=== PATIENT | female | born 1965 | race African-American/Black ===

== ENCOUNTER 2016-10-28 17:49 | Emergency (ER) | payer SELFPAY ==
[~2016-10-28] VITALS: Ht 162.6 cm; Wt 106.0 kg
[~2016-10-28 17:49] MED LIST: AMLO5TAB2 PO; POTA-163 PO
[2016-10-28 17:51] VITALS: BP 124/77; PULSE 83; RESP 16; TEMP 98.6; O2SAT 99
--- NOTE | 2016-10-28 17:55 | PD ---
Physical Exam Date Seen by Provider: Oct 28, 2016 Time Seen by Provider: 17:52 Narrative 50 YOBF C/O L SHOULDER PAIN SINCE SATURDAY. NO CP,SOB,N/V. NO INJURY VSS. PT AWAITING BED PLACEMENT Data Data Last Documented VS Vital Signs Date Time Temp Pulse Resp B/P Pulse Ox O2 Delivery O2 Flow Rate FiO2 10/28/16 17:51 98.6 83 16 124/77 99 MDM Medical Record Reviewed: Yes Supervised Visit with YUE: Yes Leno Tatum Oct 28, 2016 17:55
--- NOTE | 2016-10-28 19:09 | PD ---
HPI Chief Complaint: Injury Time Seen by Provider: 19:00 Travel History International Travel<30 days: No Contact w/Intl Traveler<30days: No Traveled to known affect area: No History of Present Illness HPI 50-year-old female presents for evaluation of anterior left shoulder pain. Symptoms started 5 days ago. She describes it as a soreness that is worse when she was reaching over her head. 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 She denies any trauma to the left shoulder. She has not tried using any medication for symptom relief. The pain does not radiate into the chest, back, neck. No numbness or tingling or weakness. No associated signs and symptoms. No other complaints. History Past Medical Histgory Hx Cancer: No Hx Chemotherapy: No Hx Radiation Therapy: No Social History Alcohol Use: Yes Tobacco Use: No Allergies-Medications (Allergen,Severity, Reaction): Coded Allergies: No Known Allergies (Verified , 08/09/16) Reported Meds & Prescriptions Reported Meds & Active Scripts Active Amlodipine (Amlodipine Besylate) 5 Mg Tab 5 Mg PO DAILY Reported Potassium Chloride ER (Potassium Chloride) 20 Meq Tab 20 Meq PO BID Review of Systems Except as stated in HPI: all other systems reviewed are Neg Physical Exam Narrative GENERAL: Well-developed well-nourished female in no acute distress SKIN: Warm and dry. No bruising or soft tissue swelling HEAD: Atraumatic. Normocephalic. EYES: Pupils equal and round. No scleral icterus. No injection or drainage. ENT: No nasal bleeding or discharge. Mucous membranes pink and moist. NECK: Trachea midline. No JVD. CARDIOVASCULAR: Regular rate and rhythm. No murmur appreciated. RESPIRATORY: No accessory muscle use. Clear to auscultation. Breath sounds equal bilaterally. MUSCULOSKELETAL: No obvious deformities. Mild tenderness to palpation to the anterior left shoulder. There is no tenderness to palpation along the clavicle , acromioclavicular joint, scapula, cervical spine. The patient maintains full range of motion of the shoulders, negative empty can test. NEUROLOGICAL: Awake and alert. No obvious cranial nerve deficits. Motor grossly within normal limits. Normal speech. Data Data Last Documented VS Vital Signs Date Time Temp Pulse Resp B/P Pulse Ox O2 Delivery O2 Flow Rate FiO2 10/28/16 17:51 98.6 83 16 124/77 99 MDM Medical Screen Exam Complete: Yes Emergency Medical Condition: No Narrative Course 50-year-old female presents with left shoulder soreness for 5 days, reproduced when reaching overhead. No trauma. I suspect shoulder impingement or tendinitis. There is no emergent medical condition for this issue and she can follow-up as an outpatient. A medical screening exam was performed: At the time of evaluation the presenting medical condition was determined not to be of an emergent nature. The patient was given the option of receiving additional care, but declined. Patient was given options for additional community resources from which to obtain care. The Patient Has Been advised to seek medical attention for their presenting complaint. The patient has been advised to return to the ER at any time if an emergent condition develops. Primary Impression: Encounter for medical screening examination Nakul Taylor Oct 28, 2016 19:09
[2017-01-15] MEDS ORDERED: ROBA750T PO (08:58)
[2017-01-15] MEDS ORDERED: POTA-163 PO (08:58)
[2017-01-15] MEDS ORDERED: IBUP-232 PO (08:58)
== END 2016-10-28 19:22 | disposition left against medical advice (07) ==
LOC: NEPK 17:49
DX: M25.512 Pain in left shoulder (principal)
CPT/HCPCS: 99281

== ENCOUNTER 2016-12-15 03:49 | Emergency (ER) | payer OTHER ==
[2016-12-15 03:51] VITALS: BP 184/94; PULSE 63; RESP 14; TEMP 97.9; O2SAT 97
--- NOTE | 2016-12-15 04:12 | PD ---
HPI Chief Complaint: Pain: Acute or Chronic Time Seen by Provider: 04:10 Travel History International Travel<30 days: No Contact w/Intl Traveler<30days: No Traveled to known affect area: No History of Present Illness HPI 51-year-old female presents to the emergency department for evaluation of right low back pain for 1 week as well as bilateral thigh cramping for 2 weeks. Patient denies a traumatic injury. She does report history of hypokalemia and takes potassium daily. She states she has been taking these as prescribed. Patient denies any fevers. No loss of bowel or bladder control. No saddle anesthesias. She reports history of hypokalemia and hypertension. She sees Dr. Muniz in the community clinic. She denies any other medical complaints at this time. No chest pressure is breath. No abdominal pain. No nausea, vomiting, diarrhea. Patient has been ambulatory. PFSH Past Medical History Autoimmune Disease: No Blood Disorders: No Heart Rhythm Problems: No Cancer: No Cardiac Catheterization: No High Cholesterol: No Chemotherapy: No Diabetes: No Diminished Hearing: No Endocrine: No Gastrointestinal Disorders: No Glaucoma: No Genitourinary: No Hypertension: No Immune Disorder: No Musculoskeletal: Yes (Muscle Spasms) Neurologic: No Psychiatric: No Reproductive: No Respiratory: No Immunizations Current: No Myocardial Infarction: No Radiation Therapy: No ?: Not : 4 Para: 3 Miscarriage: 0 : 0 Ovarian Cysts: Yes Tubal Ligation: Yes Past Surgical History AICD: No Arteriovenous Shunt: No Coronary Artery Bypass Graft: No Gynecologic Surgery: Yes (Ovarian cysts removed) Hysterectomy: Yes Insulin Pump: No Joint Replacement: No Pacemaker: No Other Surgery: No Social History Alcohol Use: Yes Tobacco Use: No Substance Use: No Allergies-Medications (Allergen,Severity, Reaction): Coded Allergies: No Known Allergies (Verified , 12/15/16) Reported Meds & Prescriptions Reported Meds & Active Scripts Active Amlodipine (Amlodipine Besylate) 5 Mg Tab 5 Mg PO DAILY Reported Potassium Chloride ER (Potassium Chloride) 20 Meq Tab 20 Meq PO BID Review of Systems Except as stated in HPI: all other systems reviewed are Neg Physical Exam Narrative GENERAL: Well-nourished, well-developed female patient, ambulatory. Afebrile. SKIN: Focused skin assessment warm/dry. HEAD: Normocephalic. Atraumatic. EYES: No scleral icterus. No injection or drainage. NECK: Supple, trachea midline. No JVD or lymphadenopathy. CARDIOVASCULAR: Regular rate and rhythm without murmurs, gallops, or rubs. RESPIRATORY: Breath sounds equal bilaterally. No accessory muscle use. Lungs sounds are clear to auscultation. GASTROINTESTINAL: Abdomen soft, non-tender, nondistended. MUSCULOSKELETAL: No cyanosis, or edema. BACK: Nontender without obvious deformity. No CVA tenderness. No midline spinal tenderness. Patient's tenderness over right lumbar paraspinal musculature. Straight leg raise is negative bilaterally. Data Data Last Documented VS Vital Signs Date Time Temp Pulse Resp B/P Pulse Ox O2 Delivery O2 Flow Rate FiO2 12/15/16 03:51 97.9 63 14 184/94 97 Room Air Orders Basic Metabolic Panel (Bmp) (12/15/16 04:09) Ketorolac Inj (Toradol Inj) (12/15/16 04:15) Orphenadrine Inj (Norflex Inj) (12/15/16 09:00) Labs Laboratory Tests Test 12/15/16 04:25 Sodium Level 140 MEQ/L Potassium Level 3.9 MEQ/L Chloride Level 108 MEQ/L Carbon Dioxide Level 25.3 MEQ/L Anion Gap 7 MEQ/L Blood Urea Nitrogen 15 MG/DL Creatinine 0.76 MG/DL Estimat Glomerular Filtration 97 ML/MIN Rate Random Glucose 115 MG/DL Calcium Level 8.9 MG/DL [facility] Medical Decision Making Medical Screen Exam Complete: Yes Emergency Medical Condition: Yes Medical Record Reviewed: Yes Differential Diagnosis Muscle strain versus muscle spasm versus hypokalemia Narrative Course 51-year-old female presents to the emergency department for evaluation of right lower back pain for 1 week and bilateral muscle cramping for 2 weeks with history of hypokalemia. BMP is ordered and pending. Patient is given Toradol 60 mg IM and Norflex 60 mg IM. BMP shows no acute abnormality. Patient will be discharged with a prescription for ibuprofen, robaxin. She is encouraged to follow up with her primary care physician. She verbalizes agreement and understanding. The patient was discharged in stable condition with instructions, including return instructions and follow up instructions. Diagnosis Primary Impression: Low back pain Qualified Code: M54.5 - Acute right-sided low back pain without sciatica Additional Impression: Muscle spasm Referrals: Primary Care Physician call for appointment Patient Instructions: Acute Low Back Pain (ED), General Instructions, Muscle Spasm (ED) Additional Instructions: Take ibuprofen as directed as needed with food for pain. Take Robaxin as instructed as needed. Follow-up with your primary care physician. Return to the emergency department for any acute worsening of symptoms. Med/Other Pt SpecificInfo: Prescription(s) given Scripts Methocarbamol (Robaxin)750 Mg [id number] Mg PO TID PRN (MUSCLE SPASM) #21 TAB Ref 0 Prov:Yael Ruiz 12/15/16 Ibuprofen 600 Mg [id number] Mg PO TID PRN (PAIN SCALE 1 TO 10) #21 TAB Ref 0 Prov:Yael Ruiz 12/15/16 Disposition: 01 DISCHARGE HOME Condition: Stable Yael Ruiz December 15, 2016 04:12
[2016-12-15] MEDS ORDERED: KETOROLAC TROMETHAMINE 60 MG/2 ML (IM) VIAL IM ONE (04:15)
[2016-12-15 05:49] LABS: BICARBONATE 25.3 MEQ/L (21.0-32.0); POTASSIUM 3.9 MEQ/L (3.5-5.1)
[2016-12-15] MEDS ORDERED: IBUP-232 PO ×2 (05:53→05:54)
[2016-12-15] MEDS ORDERED: ROBA750T PO ×2 (05:53→05:54)
[2016-12-15] MEDS ORDERED: ORPHENADRINE INJ 60 MG/2 ML AMP IM SCH (09:00)
[2017-01-15] MEDS ORDERED: ROBA750T PO (08:58)
[2017-01-15] MEDS ORDERED: POTA-163 PO (08:58)
[2017-01-15] MEDS ORDERED: IBUP-232 PO (08:58)
== END 2016-12-15 06:14 | disposition home or self-care (01) ==
LOC: NEPD 03:49
DX: M54.5 Low back pain (principal); M62.838 Other muscle spasm; E87.6 Hypokalemia; I10 Essential (primary) hypertension
CPT/HCPCS: 80048; 96372; 99284; J1885; J2360

== ENCOUNTER → 2017-02-11 | Outpatient (CLI) | payer OTHER ==
[~2017-02-11] MED LIST changes: +IBUP-232 PO; +ROBA750T PO
[2017-02-11 12:41] LABS: AUTOMATED NEUTROPHIL # 2.4 TH/MM3 (1.8-7.7); BASOPHIL # 0.1 TH/MM3 (0-0.2); BASOPHIL % 1.1 % (0.0-2.0); EOSINOPHIL # 0.2 TH/MM3 (0-0.4); EOSINOPHIL % 4.5 % (0.0-4.0); HEMATOCRIT 43.9 % (35.0-46.0); HEMO FLAGS DIFF FINAL; LYMPH % 40.8 % (9.0-44.0); LYMPHOCYTE # 2.2 TH/MM3 (1.0-4.8); MEAN CELL VOLUME 89.3 FL (80.0-100.0); MEAN CORPUSCULAR HEMOGLOBIN 29.7 PG (27.0-34.0); MEAN CORPUSCULAR HGB CONC 33.3 % (32.0-36.0); MONO % 7.2 % (0.0-8.0); NEUT % 46.4 % (16.0-70.0); PLATELET COUNT 217 TH/MM3 (150-450); RED BLOOD COUNT 4.91 MIL/MM3 (4.00-5.30); WHITE BLOOD COUNT 5.3 TH/MM3 (4.0-11.0)
[2017-02-11 13:02] LABS: ANION GAP 5 MEQ/L (5-15); AST (GOT) 12 U/L (15-37); BICARBONATE 27.9 MEQ/L (21.0-32.0); BLOOD UREA NITROGEN 18 MG/DL (7-18); CHLORIDE 106 MEQ/L (98-107); GLOMERULAR FILTRATION RATE 82 ML/MIN (>89); GLUCOSE,FASTING 95 MG/DL (74-99); POTASSIUM 4.2 MEQ/L (3.5-5.1); SODIUM (NA) 139 MEQ/L (136-145)
[2017-02-11 13:04] LABS: ALT (GPT) 30 U/L (10-53)
[2017-02-11 13:14] LABS: ALKALINE PHOSPHATASE 76 U/L (45-117); HDL CHOLESTEROL 53.6 MG/DL (40.0-60.0); LDL CHOLESTEROL 105 MG/DL (0-99); TOTAL BILIRUBIN ADULT 0.3 MG/DL (0.2-1.0)
[2017-02-11 18:14] LABS: HEMOGLOBIN A1a 1.1 %; HEMOGLOBIN A1b 1.9 %; HEMOGLOBIN Ao 84.3 %; HEMOGLOBIN P3 3.8 %
== END ==
LOC: CLAB 12:09
PROVIDERS: ATTEND Family Medicine
DX: M62.838 Other muscle spasm (principal); M54.5 Low back pain; I10 Essential (primary) hypertension; E78.5 Hyperlipidemia, unspecified; R73.02 Impaired glucose tolerance (oral); E66.9 Obesity, unspecified; Z72.0 Tobacco use
CPT/HCPCS: 36415; 80053; 80061; 83036; 84443; 85025

== ENCOUNTER 2017-04-17 10:11 | Emergency (ER) | payer OTHER ==
[~2017-04-17] VITALS: Ht 162.6 cm; Wt 89.0 kg
[2017-04-17 10:12] VITALS: BP 142/86; PULSE 64; RESP 16; TEMP 98.8; O2SAT 100
--- NOTE | 2017-04-17 10:28 | PD ---
HPI Chief Complaint: Numbness/Tingling Time Seen by Provider: 10:25 Travel History International Travel<30 days: No Contact w/Intl Traveler<30days: No Traveled to known affect area: No History of Present Illness HPI 51-year-old female with history of no significant past medical issues, presents to the ER today with 3 days history of bilateral arm tingling and paresthesias, worse on the left than the right. She denies any headaches, chest pains, shortness of breath, any leg symptoms, incontinence, fevers or any other issues. Modifying Factors: None Associated Signs & Symptoms: Bilateral hand paresthesias Risk Factors: None PFSH Past Medical History Autoimmune Disease: No Blood Disorders: No Heart Rhythm Problems: No Cancer: No Cardiac Catheterization: No High Cholesterol: No Chemotherapy: No Congestive Heart Failure: Yes Diabetes: No Diminished Hearing: No Endocrine: No Gastrointestinal Disorders: No Glaucoma: No Genitourinary: No Headaches: Yes Heparin Induced Thrombocytopen: No Hypertension: No Immune Disorder: No Musculoskeletal: Yes (Muscle Spasms) Neurologic: No Psychiatric: No Reproductive: No Respiratory: No Immunizations Current: No Myocardial Infarction: No Radiation Therapy: No ?: Not : 4 Para: 3 Miscarriage: 0 : 0 Ovarian Cysts: Yes Tubal Ligation: Yes Past Surgical History AICD: No Arteriovenous Shunt: No Coronary Artery Bypass Graft: No Gynecologic Surgery: Yes (Ovarian cysts removed) Hysterectomy: Yes Insulin Pump: No Joint Replacement: No Pacemaker: No Other Surgery: No Social History Alcohol Use: Yes Tobacco Use: No Substance Use: No Allergies-Medications (Allergen,Severity, Reaction): Coded Allergies: No Known Allergies (Verified , 03/04/17) Reported Meds & Prescriptions Reported Meds & Active Scripts Active Ibuprofen 600 Mg Tab 600 Mg PO TID PRN Potassium Chloride ER (Potassium Chloride) 20 Meq Tab 20 Meq PO BID Amlodipine (Amlodipine Besylate) 5 Mg Tab 5 Mg PO DAILY Review of Systems Except as stated in HPI: all other systems reviewed are Neg Physical Exam Narrative GENERAL: Well-developed middle age -[place] female patient currently in mild distress. Awake and oriented 3. SKIN: Focused skin assessment warm/dry. HEAD: Atraumatic. Normocephalic. EYES: Pupils equal and round. No scleral icterus. No injection or drainage. ENT: No nasal bleeding or discharge. Mucous membranes pink and moist. NECK: Trachea midline. No JVD. CARDIOVASCULAR: Regular rate and rhythm. No murmur appreciated. Pulses are present and equal bilaterally. RESPIRATORY: No accessory muscle use. Clear to auscultation. Breath sounds equal bilaterally. GASTROINTESTINAL: Abdomen soft, non-tender, nondistended. Hepatic and splenic margins not palpable. MUSCULOSKELETAL: No obvious deformities. No clubbing. No cyanosis. No edema. NEUROLOGICAL: Awake and alert. No obvious cranial nerve deficits. Motor grossly within normal limits. Normal speech. PSYCHIATRIC: Appropriate mood and affect; insight and judgment normal. Data Data Last Documented VS Vital Signs Date Time Temp Pulse Resp B/P (MAP) Pulse Ox O2 Delivery O2 Flow Rate FiO2 04/17/17 10:12 98.8 64 16 142/86 (104) 100 Room Air Orders Orders Electrocardiogram (04/17/17 10:25) Complete Blood Count With Diff (04/17/17 10:25) Basic Metabolic Panel (Bmp) (04/17/17 10:25) Ckmb (Isoenzyme) Profile (04/17/17 10:25) Troponin I (04/17/17 10:25) Magnesium (Mg) (04/17/17 10:25) CKMB (04/17/17 10:35) CKMB% (04/17/17 10:35) Labs Laboratory Tests Test 04/17/17 10:35 White Blood Count 6.1 TH/MM3 Red Blood Count 4.59 MIL/MM3 Hemoglobin 13.4 GM/DL Hematocrit 40.7 % Mean Corpuscular Volume 88.5 FL Mean Corpuscular Hemoglobin 29.2 PG Mean Corpuscular Hemoglobin Concent 33.0 % Red Cell Distribution Width 14.8 % Platelet Count 243 TH/MM3 Mean Platelet Volume 9.9 FL Neutrophils (%) (Auto) 52.7 % Lymphocytes (%) (Auto) 32.4 % Monocytes (%) (Auto) 8.2 % Eosinophils (%) (Auto) 5.5 % Basophils (%) (Auto) 1.2 % Neutrophils # (Auto) 3.2 TH/MM3 Lymphocytes # (Auto) 2.0 TH/MM3 Monocytes # (Auto) 0.5 TH/MM3 Eosinophils # (Auto) 0.3 TH/MM3 Basophils # (Auto) 0.1 TH/MM3 CBC Comment DIFF FINAL Differential Comment Blood Urea Nitrogen 15 MG/DL Creatinine 0.76 MG/DL Random Glucose 92 MG/DL Calcium Level 9.3 MG/DL Magnesium Level 2.5 MG/DL Sodium Level 140 MEQ/L Potassium Level 4.1 MEQ/L Chloride Level 108 MEQ/L Carbon Dioxide Level 24.2 MEQ/L Anion Gap 8 MEQ/L Estimat Glomerular Filtration Rate 97 ML/MIN Total Creatine Kinase 219 U/L Creatine Kinase MB 3.2 NG/ML Creatine Kinase MB % 1.5 % Troponin I LESS THAN 0.02 NG/ML MDM Medical Decision Making Medical Screen Exam Complete: Yes Emergency Medical Condition: Yes Medical Record Reviewed: Yes Interpretation(s) EKG shows NSR, no ST elevation or depression, and no arrhythmias. No significant T-wave inversions. Laboratory Tests Test 04/17/17 10:35 Monocytes (%) (Auto) 8.2 % (0.0-8.0) Eosinophils (%) (Auto) 5.5 % (0.0-4.0) Chloride Level 108 MEQ/L (98-107) Total Creatine Kinase 219 U/L (26-192) Troponin I LESS THAN 0.02 NG/ML Differential Diagnosis bilateral arm paresthesias: Cervical radiculopathy versus neuropathy versus electrolyte abnormalities versus anxiety Narrative Course EKG did not show any signs of dysrhythmias. Lab work did not show significant electrolyte abnormalities. At this point, I do not see any signs of acute processes and vital signs are stable. Pulses are present and equal bilaterally. Symptoms are more likely to be a cervical radiculopathy or neuropathy. I do not see any signs of emergent issues at this time. My plan would be to release her with follow-up to primary care physician. Return for any worsening in symptoms as necessary. The plan has been discussed with her and she states understanding. Diagnosis Primary Impression: Paresthesia of upper extremity Disposition: DISCHARGE HOME Condition: Stable Ernesto Chun MD Apr 17, 2017 10:28
[2017-04-17 10:48] LABS: AUTOMATED NEUTROPHIL # 3.2 TH/MM3 (1.8-7.7); BASOPHIL # 0.1 TH/MM3 (0-0.2); BASOPHIL % 1.2 % (0.0-2.0); EOSINOPHIL # 0.3 TH/MM3 (0-0.4); EOSINOPHIL % 5.5 % (0.0-4.0); HEMATOCRIT 40.7 % (35.0-46.0); HEMO FLAGS DIFF FINAL; LYMPH % 32.4 % (9.0-44.0); MEAN CELL VOLUME 88.5 FL (80.0-100.0); MEAN CORPUSCULAR HEMOGLOBIN 29.2 PG (27.0-34.0); MONO % 8.2 % (0.0-8.0); NEUT % 52.7 % (16.0-70.0); PLATELET COUNT 243 TH/MM3 (150-450); RED BLOOD COUNT 4.59 MIL/MM3 (4.00-5.30); RED CELL DISTRIBUTION WIDTH 14.8 % (11.6-17.2); WHITE BLOOD COUNT 6.1 TH/MM3 (4.0-11.0)
[2017-04-17 11:11] LABS: ANION GAP 8 MEQ/L (5-15); BICARBONATE 24.2 MEQ/L (21.0-32.0); BLOOD UREA NITROGEN 15 MG/DL (7-18); CHLORIDE 108 MEQ/L (98-107); GLOMERULAR FILTRATION RATE 97 ML/MIN (>89); MAGNESIUM 2.5 MG/DL (1.5-2.5); POTASSIUM 4.1 MEQ/L (3.5-5.1); SODIUM (NA) 140 MEQ/L (136-145)
[2017-04-17 11:15] LABS: CREATINE KINASE 219 U/L (26-192)
[2017-04-17 11:27] LABS: CKMB 3.2 NG/ML (0.5-3.6)
--- NOTE | 2017-04-17 14:32 | EKG ---
Date Performed: 04/17/2017 Time Performed: 10:32:50 PTAGE: 51 years EKG: SINUS BRADYCARDIA WITH SINUS ARRHYTHMIA AND PACS BORDERLINE ECG PREVIOUS TRACING : 08/23/2008 20.54 Compared to prior tracing no significant change DOCTOR: John Dao Interpretating Date/Time 04/17/2017 14:31:04
== END 2017-04-17 12:50 | disposition home or self-care (01) ==
LOC: NEPE 10:11
DX: R20.9 Unspecified disturbances of skin sensation (principal); R20.2 Paresthesia of skin; R00.1 Bradycardia, unspecified; I49.8 Other specified cardiac arrhythmias; I50.9 Heart failure, unspecified; Z79.899 Other long term (current) drug therapy
CPT/HCPCS: 80048; 82550; 82552; 83735; 84484; 85025; 93005; 99284

== ENCOUNTER 2017-08-14 14:59 | Emergency (ER) | payer SELFPAY ==
[~2017-08-14] VITALS: Ht 162.6 cm; Wt 65.9 kg
[~2017-08-14 14:59] MED LIST changes: -ROBA750T PO
[2017-08-14 15:07] VITALS: BP 157/102; PULSE 87; RESP 16; TEMP 98.3
[2017-08-14] MEDS ORDERED: DEXAMETHASONE SOD PHOS 20 MG/5 ML VIAL IM ONE (16:15)
[2017-08-14] MEDS ORDERED: BLOOD PRESSURE MED (16:26)
[2017-08-14 16:30] VITALS: BP 130/87; PULSE 65; RESP 18; O2SAT 98
--- NOTE | 2017-08-14 16:39 | RADRPT ---
EXAM DATE/TIME: 08/14/2017 16:12 [facility] COMPARISON: CHEST SINGLE AP, October 21, 2014, 19:02. INDICATIONS : Cough., swollen tonsils MEDICAL HISTORY : None. SURGICAL HISTORY : None. ENCOUNTER: Initial ACUITY: 2 weeks PAIN SCORE: 0/10 LOCATION: Bilateral chest FINDINGS: A single view of the chest demonstrates the lungs to be symmetrically aerated without evidence of mas s, infiltrate or effusion. The cardiomediastinal contours are unremarkable. Osseous structures are intact. CONCLUSION: 1. No acute cardiopulmonary disease. Albino Jacobo MD on August 14, 2017 at 16:36 Board Certified Radiologist. This report was verified electronically.
[2017-08-14] MEDS ORDERED: AMOX875T PO (17:24)
[2017-08-14] MEDS ORDERED: PRED20 PO (17:24)
--- NOTE | 2017-08-14 17:34 | PD ---
HPI Chief Complaint: ENT Complaint Time Seen by Provider: 15:59 Travel History International Travel<30 days: No Contact w/Intl Traveler<30days: No Traveled to known affect area: No History of Present Illness HPI 51-year-old female that presents to the ED for evaluation of trouble swallowing as well as congestion and headache. Per patient she's had this for about 2 weeks now. Per patient when she sleeps she feels like she is having choking episodes. She is able to swallow however. Able to swallow her own saliva in the room. She has no other difficulty. She states having a sore throat. Congestion and puffiness to her eyes. Per patient she has no history of allergies. Has not been taking anything for this with ibuprofen. Has not seen anybody for this. No history of asthma. History of smoking. No allergies to medication. No fevers chills or sweats. No other medical issues. PFSH Past Medical History Autoimmune Disease: No Blood Disorders: No Heart Rhythm Problems: No Cancer: No Cardiac Catheterization: No Cardiovascular Problems: Yes (HTN) High Cholesterol: No Chemotherapy: No Congestive Heart Failure: Yes Diabetes: No Diminished Hearing: No Endocrine: No Gastrointestinal Disorders: No Glaucoma: No Genitourinary: No Headaches: Yes Heparin Induced Thrombocytopen: No Hypertension: Yes Immune Disorder: No Musculoskeletal: Yes (Muscle Spasms) Neurologic: No Psychiatric: No Reproductive: No Respiratory: No Immunizations Current: No Myocardial Infarction: No Radiation Therapy: No ?: Not : 4 Para: 3 Miscarriage: 0 : 0 Ovarian Cysts: Yes Tubal Ligation: Yes Past Surgical History AICD: No Arteriovenous Shunt: No Coronary Artery Bypass Graft: No Gynecologic Surgery: Yes (Ovarian cysts removed) Hysterectomy: Yes Insulin Pump: No Joint Replacement: No Pacemaker: No Other Surgery: No Social History Alcohol Use: No Tobacco Use: No Substance Use: No Allergies-Medications (Allergen,Severity, Reaction): Coded Allergies: No Known Allergies (Verified Adverse Reaction, Unknown, 08/14/17) Reported Meds & Prescriptions Reported Meds & Active Scripts Active Prednisone 20 Mg Tab 20 Mg PO BID 5 Days Amoxicillin 875 Mg Tab 875 Mg PO BID 10 Days Reported [Blood Pressure Med] Review of Systems Except as stated in HPI: all other systems reviewed are Neg Physical Exam Narrative GENERAL: Well-nourished, well-developed patient in no apparent distress. SKIN: Warm and dry. HEAD: Atraumatic. Normocephalic. EYES: Pupils equal and round reactive to light and accommodation. No scleral icterus. No injection or drainage. ENT: No nasal bleeding or discharge. Mucous membranes pink and moist. TMs are clear with no sign of infection or perforation. No mastoid tenderness. Ear canals are intact bilaterally. No lymphadenopathy. Nostril mucosa is red and moist with clear mucus noted. No sinus tenderness to palpation noted. Tonsils are enlarged but symmetrical and not touching. No ulvua Deviation. Tongue is midline. NECK: Trachea midline. No JVD. No meningeal signs noted CARDIOVASCULAR: Regular rate and rhythm. RESPIRATORY: No accessory muscle use. Clear to auscultation. Breath sounds equal bilaterally. GASTROINTESTINAL: Abdomen soft, non-tender, nondistended. Hepatic and splenic margins not palpable. MUSCULOSKELETAL: Extremities without clubbing, cyanosis, or edema. No obvious deformities. Full range of motion of the upper and lower extremities bilaterally. 2+ pulses bilaterally. NEUROLOGICAL: Awake and alert. No obvious cranial nerve deficits. Motor grossly within normal limits. Five out of 5 muscle strength in the arms and legs. Normal speech. PSYCHIATRIC: Appropriate mood and affect; insight and judgment normal. Data Data Last Documented VS Vital Signs Date Time Temp Pulse Resp B/P (MAP) Pulse Ox O2 Delivery O2 Flow Rate FiO2 08/14/17 16:30 65 18 130/87 (101) 98 Room Air 08/14/17 15:07 98.3 Orders Orders Chest, Single Ap (08/14/17 ) Dexamethasone Inj (Decadron Inj) (08/14/17 16:15) Ed Discharge Order (08/14/17 17:26) [facility] Medical Decision Making Medical Screen Exam Complete: Yes Emergency Medical Condition: Yes Medical Record Reviewed: Yes Interpretation(s) Last Impressions Chest X-Ray 08/14/17 0000 Signed Impressions: Service Date/Time: Monday, August 14, 2017 16:12 - CONCLUSION: 1. No acute cardiopulmonary disease. Albino Jacobo MD Differential Diagnosis Pharyngitis versus laryngitis versus tonsillitis versus pneumonia Narrative Course 51-year-old female that presents to the ED for evaluation of sore throat. Patient was properly examined and was found to have signs and symptoms consistent appears to be tonsillitis. Chest x-ray was done to any sign of pneumonia as patient does continue to have symptoms after 2 weeks and states having some shortness of breath. Chest x-ray was negative for this. Patient was reassured. Patient was given shot of dexamethasone here to help with her symptoms. She will be given amoxicillin and prednisone as patient has already had symptoms for 2 weeks and this should cover for bacterial infection. Told to follow closely with PCP. See ED worsening symptoms. Diagnosis Primary Impression: Tonsillitis Patient Instructions: General Instructions Additional Instructions: Motrin and Tylenol for pain and fever. You can use [id number] antihistamine as well as well as Mucinex as needed for runny nose and congestion. Cough drops for cough as needed. Drink plenty of fluids. Follow-up with PCP. See ED for worsening symptoms. Med/Other Pt SpecificInfo: Prescription(s) given Scripts Prednisone (Prednisone) 20 Mg Tab 20 MG PO BID for 5 Days, #10 TAB 0 Refills Prov: Kecia Pool MD 08/14/17 Amoxicillin (Amoxicillin) 875 Mg Tab 875 MG PO BID for Infection for 10 Days, #20 TAB 0 Refills Prov: Kecia Pool MD 08/14/17 Disposition: 01 DISCHARGE HOME Condition: Stable Ken Gonzalez Aug 14, 2017 17:34
== END 2017-08-14 17:45 | disposition home or self-care (01) ==
LOC: NEPD 14:59
DX: J03.90 Acute tonsillitis, unspecified (principal); R51 Headache; I11.0 Hypertensive heart disease with heart failure; I50.9 Heart failure, unspecified
CPT/HCPCS: 71045; 96372; 99284; J1100